=== PATIENT | male | born 1975 ===

== ENCOUNTER 2022-03-04 14:46 | Inpatient (IN) | payer SELFPAY ==
[~2022-03-04] VITALS: Ht 180.3 cm; Wt 74.5 kg
--- NOTE | 2022-03-04 17:10 | NUR ---
DIRECT ADMIT RECEIVED INTO ICU6 VIA [place]. ADMIT DX-ESOPHAGEAL VARICES. PT HAS HX-ETOH, ANXIETY, HTN, CIRRHOSIS, AND HEPATITS C. PT IS A&0X4, BUT CIWA 19. PT STATES THAT HIS LAST DRINK WAS APPROXIMATELY 3 DAYS AGO. THAT IS THE LAST TIME THAT HE TOOK HIS ROUTINE MEDICATIONS WELL. ECG SHOWS SR WITH RATE 60-80'S. BP STABLE. LUNGS CLEAR-NO SOB OR COUGH. PT NPO-REPORTS MODERATE NAUSEA, BUT NO EMESIS OR MELENA. PROTONIX DRIP @ 8 MG/HR AND SANDOSTATIN @ 50 MCG/HR. DR. KHALIL UPDATED TO PT ADMIT BY RENZO PUGA. DR. NOBLE IN TO SEE PT-UPDATE GIVEN AND ORDERS WRITTEN. CALL LIGHT WITHIN REACH.
[2022-03-04] MEDS ORDERED: ALPRAZOLAM2 M1 PO (18:07)
[2022-03-04] MEDS ORDERED: OMEP20ER PO (18:08)
--- NOTE | 2022-03-04 18:50 | NUR ---
DR. KHALIL IN TO SEE PT-UPDATE GIVEN. CONTINUE NPO AND PLAN FOR ECG TOMORROW. PT TEARFUL AND CIWA 14-MED WITH ATIVAN 2 MG IVP X 1. H&H AND CHEM PROFILE DRAWN FROM POWER THE EMPTY JOINT AND SENT TO LAB.
[2022-03-04 18:58] LABS: BASOPHILS ABSOLUTE AUTO 0.02 K/mm3 (0.00-0.23); BASOPHILS PERCENT AUTO 0 % (0-2); EOSINOPHILS ABSOLUTE AUTO 0.04 K/mm3 (0.00-0.68); EOSINOPHILS PERCENT AUTO 1 % (0-6); Hematocrit 32.4 % (37.0-53.0); Hemoglobin 11.1 g/dL (13.5-17.5); IMMATURE GRAN ABSOLUTE AUTO 0.01 K/mm3 (0.00-0.10); IMMATURE GRAN PERCENT AUTO 0 % (0-1); LYMPHOCYTES ABSOLUTE AUTO 2.85 K/mm3 (0.84-5.20); LYMPHOCYTES PERCENT AUTO 45 % (21-46); MONOCYTES ABSOLUTE AUTO 0.62 K/mm3 (0.16-1.47); MONOCYTES PERCENT AUTO 10 % (4-13); Mean Corpuscular HGB 30.7 pg (26.0-34.0); Mean Corpuscular HGB Conc 34.3 g/dL (31.5-36.5); Mean Corpuscular Volume 90 fL (80-100); Mean Platelet Volume 12.3 fL (9.1-12.4); NEUTROPHILS ABSOLUTE AUTO 2.81 K/mm3 (1.96-9.15); NEUTROPHILS PERCENT AUTO 44 % (41-73); Platelet Count 61 K/mm3 (150-400); RDW Coefficient Variation 16.2 % (11.7-14.2); Red Blood Cell Count 3.62 M/mm3 (4.30-5.90); White Blood Cell Count 6.35 K/mm3 (4.00-11.30)
[2022-03-04 19:18] LABS: Albumin, Blood 3.1 g/dL (3.4-5.0); Albumin/Globulin Ratio 0.6 (0.8-1.8); Bilirubin, Total 0.9 mg/dL (0.1-1.0); Bun/Creatinine Ratio 9.6 (12.0-20.0); Calcium, Blood 7.6 mg/dL (8.5-10.1); Creatinine, Blood 0.83 mg/dL (0.60-1.20); Magnesium, Blood 1.4 mg/dL (1.6-2.4); Potassium, Blood 3.7 mmol/L (3.5-5.5); Total Protein, Blood 8.1 g/dL (6.4-8.2)
[2022-03-04 19:53] LABS: International Normalized Ratio 1.35; Prothrombin Time Results 13.9 Sec (9.7-11.5)
[2022-03-04 23:56] LABS: Hematocrit 31.6 % (37.0-53.0); Hemoglobin 10.7 g/dL (13.5-17.5)
[2022-03-05 04:25] LABS: BASOPHILS ABSOLUTE AUTO 0.02 K/mm3 (0.00-0.23); BASOPHILS PERCENT AUTO 0 % (0-2); EOSINOPHILS ABSOLUTE AUTO 0.09 K/mm3 (0.00-0.68); EOSINOPHILS PERCENT AUTO 2 % (0-6); Hematocrit 32.6 % (37.0-53.0); Hemoglobin 10.7 g/dL (13.5-17.5); IMMATURE GRAN ABSOLUTE AUTO 0.01 K/mm3 (0.00-0.10); IMMATURE GRAN PERCENT AUTO 0 % (0-1); LYMPHOCYTES ABSOLUTE AUTO 2.35 K/mm3 (0.84-5.20); LYMPHOCYTES PERCENT AUTO 48 % (21-46); MONOCYTES ABSOLUTE AUTO 0.47 K/mm3 (0.16-1.47); MONOCYTES PERCENT AUTO 10 % (4-13); Mean Corpuscular HGB 29.8 pg (26.0-34.0); Mean Corpuscular HGB Conc 32.8 g/dL (31.5-36.5); Mean Corpuscular Volume 91 fL (80-100); NEUTROPHILS ABSOLUTE AUTO 1.94 K/mm3 (1.96-9.15); NEUTROPHILS PERCENT AUTO 40 % (41-73); Platelet Count 59 K/mm3 (150-400); RDW Coefficient Variation 16.1 % (11.7-14.2); RDW Standard Deviation 53.7 fL (35.1-46.3); Red Blood Cell Count 3.59 M/mm3 (4.30-5.90); White Blood Cell Count 4.88 K/mm3 (4.00-11.30)
[2022-03-05 04:42] LABS: Albumin, Blood 2.7 g/dL (3.4-5.0); Albumin/Globulin Ratio 0.6 (0.8-1.8); Bilirubin, Total 0.8 mg/dL (0.1-1.0); Bun/Creatinine Ratio 10.8 (12.0-20.0); Calcium, Blood 7.5 mg/dL (8.5-10.1); Creatinine, Blood 0.84 mg/dL (0.60-1.20); Globulin, Blood 4.8 g/dL (2.2-4.0); Potassium, Blood 3.4 mmol/L (3.5-5.5); Total Protein, Blood 7.5 g/dL (6.4-8.2)
--- NOTE | 2022-03-05 05:51 | NUR ---
SHIFT SUMMERY PT HAS HAD NO EPISODES OF HEMATEMESIS OR MELENA THIS SHIFT. PT HAS BEEN SB ON THE MONITOR W/BP WNL, MAPS > 65. PT IS ALERT AND ORIENTED X4. CIWA SCORES TREATED W/PRN ATIVAN APPROPRIATE. PT HAS HAD NO ACUTE CHANGES OR DISTRESS OVERNIGHT.
--- NOTE | 2022-03-05 08:54 | NUR ---
ASSUMED CARE REPORT FROM GERSON MULLER AT 0700. PT RESTING IN BED. WAKES c VERBAL STIMULI. A&OX 4. FOLLOWS COMMANDS. C/O GENERALIZED ABD PAIN, 8/10, CRAMPING, INTERMITTANT. DENIES N/V/D. ABD SOFT, ROUND, TENDER THROUGHOUT. BT X 4. PT ALSO CONCERNED ABOUT WITHDRAWALS. REQUESTING CONTINUOUS IV GTT. CIWA 11. EDUCATED PT ON MEDS. GIVEN ATIVAN ORDERED. SR, RATE 60'S. BP STABLE. MAEW. PROTONIX AND OCTREOTIDE GTT INFUSING. KCL REPLACED. PLAN FOR EGD TODAY. REMAINS NPO. WILL CONTINUE TO MONITOR.
[2022-03-05 12:08] LABS: Hematocrit 35.2 % (37.0-53.0); Hemoglobin 11.6 g/dL (13.5-17.5)
--- NOTE | 2022-03-05 17:04 | NUR ---
PT TRANSFERRED FROM ICU6 (PCU STATUS) ON [facility], MONITORS REMAIN ON. PT ALERT, BREATHING ROOM AIR, SOME TREMORS NOTED, PT STATES HE IS "VERY ANXIOUS", WILL BRING TO PROCEDURE WHEN DR. SPRAGUE AND DR. ROSA AVAILABLE. History, Chart, Medications and Allergies reviewed before start of procedure.Patient confirms NPO status and agrees with scheduled surgery.
[2022-03-05 17:36] LABS: Hematocrit 35.5 % (37.0-53.0); Hemoglobin 11.8 g/dL (13.5-17.5)
--- NOTE | 2022-03-05 17:39 | NUR ---
SHIFT SUMMARY NO ACUTE CHANGES THIS SHIFT. STATUS CHANGED TO PCU. PT CURRENTLY IN DAY SX FOR EDG. PROTONIX AND OCTREOTIDE GTT CONTINUE. NO BM OR EMESIS THIS SHIFT. PT C/O GENERALIZED ABD PAIN, RETURNS TO SLEEP WHEN UNDISTURBED. CIWA 8-12 THIS SHIFT. TOLERATED LIBRIUM WELL. REMAINED NPO FOR PROCEDURE. VSS. WILL CONTINUE TO MONITOR UNTIL REPORT TO ONCOMING NURSE.
--- NOTE | 2022-03-05 17:57 | NUR ---
03/05/22 1757 Allen Shook HISTORY, CHART, MEDICATIONS AND ALLERGIES REVIEWED BEFORE START OF PROCEDURE. PATIENT CONFIRMS NPO STATUS AND AGREES WITH SCHEDULED PROCEDURE. 3-LEAD EKG REVIEWED WITH PHYSICIAN PRIOR TO START OF PROCEDURE. MONITOR INTACT WITH CONTINUOUS PULSE OXIMETRY,CAPNOGRAPHY, 3-LEAD EKG, INTERMITTENT BP. SUPPLEMENTAL O2 TO BE TITRATED THROUGHOUT PROCEDURE TO MAINTAIN O2 SATURATION ABOVE 90%. PATIENT DETERMINED TO BE ASA APPROPRIATE FOR PROPOFOL SEDATION PRIOR TO START OF PROCEDURE BY . DR. SPRAGUE PROVIDING ANESTHESIA
--- NOTE | 2022-03-06 04:57 | NUR ---
END OF SHIFT SUMMARY NO ACUTE EVENTS OVER NIGHT PT HAS BEEN BARDICARDIC RATE LOW 39 ASYMTOMATIC PT NORMOTENSIVE. PT SCORED 9 ON CIWA AND WAS GIVEN LIBRIUM 50MG X2 AND ATIVAN 1MG X2. PT C/O OF MOSTLY ANXIETY SLIGHT TREMORS AND MILD H/A PT WAS QUITE EMOTIONAL WITH FREQUENT EPISODES OF TEARS AND FEELING OF HOPELESSNESS. AFTER PT RECIEVED 2ND DOSE OF ATIVAN PT WAS ABLE TO SLEEP COMFORTABLY FOR MOST OF NIGHT. PT HAS TOLERATED CLEARS AND WILL ADVANCE HIS DIET. WILL CONTINUE TO MONITOR AND REPORT OFF TO ONCOMING RN
[2022-03-06 05:13] LABS: BASOPHILS ABSOLUTE AUTO 0.02 K/mm3 (0.00-0.23); BASOPHILS PERCENT AUTO 0 % (0-2); EOSINOPHILS ABSOLUTE AUTO 0.13 K/mm3 (0.00-0.68); EOSINOPHILS PERCENT AUTO 3 % (0-6); Hematocrit 32.6 % (37.0-53.0); IMMATURE GRAN ABSOLUTE AUTO 0.01 K/mm3 (0.00-0.10); IMMATURE GRAN PERCENT AUTO 0 % (0-1); LYMPHOCYTES ABSOLUTE AUTO 2.27 K/mm3 (0.84-5.20); LYMPHOCYTES PERCENT AUTO 50 % (21-46); MONOCYTES ABSOLUTE AUTO 0.43 K/mm3 (0.16-1.47); MONOCYTES PERCENT AUTO 10 % (4-13); Mean Corpuscular HGB 30.6 pg (26.0-34.0); Mean Corpuscular HGB Conc 33.7 g/dL (31.5-36.5); Mean Corpuscular Volume 91 fL (80-100); Mean Platelet Volume 12.8 fL (9.1-12.4); NEUTROPHILS ABSOLUTE AUTO 1.69 K/mm3 (1.96-9.15); NEUTROPHILS PERCENT AUTO 37 % (41-73); Platelet Count 54 K/mm3 (150-400); RDW Coefficient Variation 15.9 % (11.7-14.2); RDW Standard Deviation 53.1 fL (35.1-46.3); Red Blood Cell Count 3.59 M/mm3 (4.30-5.90); White Blood Cell Count 4.55 K/mm3 (4.00-11.30)
[2022-03-06 05:20] LABS: Albumin, Blood 2.7 g/dL (3.4-5.0); Albumin/Globulin Ratio 0.5 (0.8-1.8); Bilirubin, Total 0.9 mg/dL (0.1-1.0); Calcium, Blood 7.8 mg/dL (8.5-10.1); Creatinine, Blood 0.8 mg/dL (0.60-1.20); Potassium, Blood 3.5 mmol/L (3.5-5.5); Total Protein, Blood 7.7 g/dL (6.4-8.2)
--- NOTE | 2022-03-06 08:40 | NUR ---
ASSUMED CARE REPORT FROM SIMON MULLER AT 0615. PT RESTING IN BED. WAKES c VERBAL STIMULI. A&OX 4. FOLLOWS COMMANDS. STATES HE IS FEELING BETTER. CIWA 5. SLIGHT TREMORS NOTED, MILDLY ANXIOUS. ASKING FOR MEDS FOR WITHDRAWAL. WILL MEDICATED c LIBRIUM. REPORTS ABD PAIN BETTER, 12/11. SLEEPS WHEN UNDISTURBED. ABD ROUND, SOFT, GENERALIZED TENDERNESS. HYPERACTIVE BT. TOLERATED FULL LIQUID DIET WELL. MD ROUNDS, PLAN ON STATUS CHANGE. WILL CONTINUE TO MONITOR.
--- NOTE | 2022-03-06 13:30 | NUR ---
TRANSFER TO MEDICAL FLOOR REPORT TO EDWIN MULLER. NO ACUTE CHANGES. PT REMAINS ON OCTREOTIDE GTT. CIWA 5. STATES HE IS TOLERATING SYMPTOMS WELL, DENIES NEEDS FOR MEDS AT THIS TIME. INDEPENDENT IN ROOM. CONTINUES TO BE BRADYCARDIC, ASYMPTOMATIC. ALL BELONGINGS TRANSFERRED c PT.
--- NOTE | 2022-03-06 14:05 | NUR ---
ICU TRANSFER TO MEDICAL-FULL CODEIBIS TO ASA, PATIENT ADMITTED FOR BLEEDING VARICES IN ESOPHAGUS, ALSO HAS VARICES ON FUNDUS. HISTORY OF ETOH. WAS ON CIWA, UNSURE IF THIS IS STILL ACTIVE. SURGERY/SCOPE YESTERDAY TO FIND AND STOP BLEED CAME TO THE FLOOR AROUND 2PM. HE HAS A DRIP RUNNING (OCTREOTIDE) AT 25MG PER HOUR, WITH AN ADDITIONAL BAG SENT UP FROM ICU. MED NOT IN IV LIBRARY LIST. PATIENT IS ON REGULAR DIET. SCD'S IN PLACE. TELE BOX ORDERED ALERT AND ORIENTATED INDEPENDENT IN ROOM. HISTORY OF HEP C AND CIRROHSIS OF THE LIVER
--- NOTE | 2022-03-06 16:46 | NUR ---
CIWA WAS DONE AND SCORE WAS 5. PATIENT WAS COMPLAINING OF ANXIETY, AND NAUSEA. SLIGHT VISIBLE TREMORS SEEN. ZOFRAN AND XANAX WAS ADMINISTERED AND EFFECTIVE. THE SECOND BAG OF OCTREOTIDE WAS HUNG 4:46PM. PATIENT IS ABLE TO MAKE NEEDS KNOWN. STATES HE IS COMFORTABLE AT THIS TIME. IV ABX STILL TO BE ADMINISTERED THIS EVENING 1800.
--- NOTE | 2022-03-06 20:33 | NUR ---
PATIENT IN BED, AOX4, O2 RA. PT REPORTS THAT HE IS FEELING ANXIOUS. HE ALSO REPORTS THAT HE HAS GENERAL ACHING IN HIS BODY. HE REPORTS LIGHT NAUSEA. PT REQUESTING XANAX. ADVISED THAT XANAX IS ORDERED FOR 1X PER DAY. PT REPORTS HE TAKES 2MG OF XANAX AM & PM AT HOME FOR ANXIETY FOR THE LAST 3 YEARS. ADVISED PT THAT THIS RN WILL CONTACT MD IF ANXIETY INCREASES. CIWA ASSESSMENT CONPLETED.
--- NOTE | 2022-03-07 06:05 | NUR ---
NOC SHIFT SUMMARY: PATIENT AO X 4 THIS SHIFT. O2 RA. PT. DENIES AGUILA OR PAIN. PT. HAD SLIGHT AMOUNT OF NAUSEA AT BEGINNING OF SHIFT THAT HAS RESOLVED AFTER ADMIN OF PRN ANTIEMETIC SEE JUL. PT. IV MEDICATIONS RUNNING PER ORDERS. PT. WITHDRAW ASSESSMENTS COMPLETED. PT. REPORTS ANXIETY. STATES THAT HE TAKES 2MG XANAX BID AT HOME. VERIFIED MEDICATIONS AND CONTACTED HOSPITALIST FOR SCHEDULED XANAX ORDER. ADMIN WITH GOOD RESULTS. PT. RESTING WELL THROUGHOUT SHIFT. PT INDEPENDENT IN ROOM.
[2022-03-07 06:28] LABS: BASOPHILS ABSOLUTE AUTO 0.02 K/mm3 (0.00-0.23); BASOPHILS PERCENT AUTO 0 % (0-2); EOSINOPHILS ABSOLUTE AUTO 0.12 K/mm3 (0.00-0.68); EOSINOPHILS PERCENT AUTO 2 % (0-6); Hematocrit 33.5 % (37.0-53.0); Hemoglobin 11.3 g/dL (13.5-17.5); IMMATURE GRAN ABSOLUTE AUTO 0.02 K/mm3 (0.00-0.10); IMMATURE GRAN PERCENT AUTO 0 % (0-1); LYMPHOCYTES PERCENT AUTO 34 % (21-46); MONOCYTES PERCENT AUTO 10 % (4-13); Mean Corpuscular HGB 30.5 pg (26.0-34.0); Mean Corpuscular HGB Conc 33.7 g/dL (31.5-36.5); Mean Corpuscular Volume 90 fL (80-100); NEUTROPHILS ABSOLUTE AUTO 2.69 K/mm3 (1.96-9.15); NEUTROPHILS PERCENT AUTO 53 % (41-73); Platelet Count 58 K/mm3 (150-400); RDW Coefficient Variation 15.9 % (11.7-14.2); RDW Standard Deviation 52.3 fL (35.1-46.3); Red Blood Cell Count 3.71 M/mm3 (4.30-5.90); White Blood Cell Count 5.05 K/mm3 (4.00-11.30)
[2022-03-07 06:30] LABS: Mean Platelet Volume 12.9 fL (9.1-12.4)
[2022-03-07 06:47] LABS: Albumin, Blood 2.8 g/dL (3.4-5.0); Albumin/Globulin Ratio 0.5 (0.8-1.8); Bilirubin, Total 0.8 mg/dL (0.1-1.0); Bun/Creatinine Ratio 12.4 (12.0-20.0); Calcium, Blood 8.2 mg/dL (8.5-10.1); Creatinine, Blood 0.89 mg/dL (0.60-1.20); Globulin, Blood 5.2 g/dL (2.2-4.0); Potassium, Blood 3.3 mmol/L (3.5-5.5)
[2022-03-07] MEDS ORDERED: VITAMIN B-1100 MG PO (12:44)
[2022-03-07] MEDS ORDERED: FOLI1 PO (12:44)
--- NOTE | 2022-03-07 15:30 | NUR ---
"Spiritual Care | Nurse request Pt. is with a director of casework services until I arrive. Pt. welcomes my visit, and quickly facilitate a life review. Pt. displays evidence of not knowing where he is. Pt. verbalized that he thought he was in [place]. Listen empathetically with a calming presence. Pastoral care is provided, and prayed with Pt. Pt. verbalized gratitude for the spiritual care visit."
--- NOTE | 2022-03-07 16:56 | NUR ---
PT DISCHARGE REVIEWEDD [facility] PT HE VERBALIZED UNDERSTANDING MEDS AND INST. IV X2 PULLED INTACT. TELE REMOVED AND RETURNED. PT PEND RIDE FROOM FROM [place]. PT TO DRESS SELF. IS INDEPENDANT
--- NOTE | 2022-03-07 18:34 | NUR ---
PT IS DISCHARGED , PENDING TO COME HERE FOR TRANSPORT TO [place] . IV X2 PULLED INTACT. TELE REMOVED. RETURNED. PT HANDED D/CHG PAPERS. WILL DRESS SELF, INDEPENDANT IN ROOM. BED IN LOW POSITION, CALL LITEIN REACH. CALLS APPROP
--- NOTE | 2022-03-07 18:52 | NUR ---
IN ROOM. SHE STATES REFUSING TO LET HIM BACK TO HIS HOME IN [place]. STATES SHE WILL AGREE TO TAKE HIM TO THAT AREA. BUT THAT IS ALL. BASED ON EARLIER DISCUSSIONS, HE MAY BE STAYING AT [facility] OR THE LIKE. THEY TALKING IN ROOM FOR THE MOMENT. SHE STATES THEY WILL BE LEAVING IN [place] FEW NIMUTES.
--- NOTE | 2022-03-07 19:19 | NUR ---
PT DISCHARGED OUT DOOR WITH PT SPOUSE. WALKED SELF TO DOOR. 1914
== END 2022-03-07 19:19 | disposition home or self-care (01) | DRG 432 ==
LOC: ICUE → ICUW 17:08 → ICUE 17:16 → MEDS 03-05 15:37 → ICUE 03-06 09:54 → MEDS 03-06 13:50
PROVIDERS: Family Medicine; Internal Medicine; Internal Medicine Gastroenterology; ADMIT Hospitalist
PROC: HZ2ZZZZ Detoxification Services for Substance Abuse Treatment (ICD-10-PCS; 2022-03-05)
PROC: 0DJ08ZZ Inspection of Upper Intestinal Tract, Via Natural or Artificial Opening Endoscopic (ICD-10-PCS; principal; 2022-03-05 16:00)
DX: K70.30 Alcoholic cirrhosis of liver without ascites (principal); I85.11 Secondary esophageal varices with bleeding; K76.6 Portal hypertension; F10.239 Alcohol dependence with withdrawal, unspecified; F13.20 Sedative, hypnotic or anxiolytic dependence, uncomplicated; K21.9 Gastro-esophageal reflux disease without esophagitis; I86.4 Gastric varices; E87.6 Hypokalemia; E83.42 Hypomagnesemia; B19.20 Unspecified viral hepatitis C without hepatic coma; Z88.6 Allergy status to analgesic agent; Z88.8 Allergy status to other drugs, medicaments and biological substances; Z79.899 Other long term (current) drug therapy
CPT/HCPCS: 80053; 83735; 85014; 85018; 85025; 85610; 86850; 86900; 86901; 96365; 96375; 96376; A9270; C1751; C9113; G0378; J0696; J2001; J2060; J2250; J2354; J2405; J2704; J3411; J3475; J3480; J7042; J7050; J7120